=== PATIENT | male | born 1975 | race Caucasian/White ===

== ENCOUNTER 2018-07-01 22:45 | Emergency (ER) | payer BC, MEDICAID ==
[2018-07-01 22:51] VITALS: TEMP 98.1
--- NOTE | 2018-07-01 23:53 | ED ---
General Adult HPI - General Chief complaint: Skin/Abscess/Foreign Body Stated complaint: poss tick bite Time Seen by Provider: 07/01/18 23:02 Source: patient, RN notes reviewed Mode of arrival: ambulatory Limitations: no limitations - History of Present Illness Initial comments: 43-year-old male presents to the emergency department for multiple complaints. Patient states he has had neck pain for 3 days which resolved yesterday. Patient states the neck pain occurred after he tried to lift up the end of his trailer. Patient states the pain is in the neck in the upper back. Patient states he also has a bug bite on the left arm. Patient is concerned that it looks red around the bug bite. He states his family was concerned for Lyme disease. Patient denies any myalgias or headaches. Patient states he has had night sweats for the past 2 nights. Patient denies fevers or chills at home. Patient denies any nausea or vomiting. Patient has no other complaints at this time including shortness of breath, chest pain, abdominal pain, nausea or vomiting, headache, or visual changes. - Related Data Previous Rx's Medication Instructions Recorded Doxycycline [Vibramycin] 50 mg PO Q12HR 10 Days capsule 07/02/18 Allergies Allergy/AdvReac Type Severity Reaction Status Date / Time No Known Allergies Allergy Verified 07/01/18 22:51 Review of Systems ROS Statement: Those systems with pertinent positive or pertinent negative responses have been documented in the HPI. ROS Other: All systems not noted in ROS Statement are negative. Past Medical History Past Medical History: No Reported History History of Any Multi-Drug Resistant Organisms: None Reported Past Surgical History: No Surgical Hx Reported Past Psychological History: No Psychological Hx Reported Smoking Status: Former smoker Past Alcohol Use History: Daily Past Drug Use History: None Reported General Exam Limitations: no limitations General appearance: alert, in no apparent distress Head exam: Present: atraumatic, normocephalic, normal inspection Eye exam: Present: normal appearance, PERRL, EOMI. Absent: scleral icterus, conjunctival injection, periorbital swelling ENT exam: Present: normal exam, normal oropharynx, mucous membranes moist, TM's normal bilaterally, normal external ear exam Neck exam: Present: normal inspection, full ROM. Absent: tenderness (no cervical or paraspinal cervical tenderness), meningismus, lymphadenopathy Respiratory exam: Present: normal lung sounds bilaterally Cardiovascular Exam: Present: regular rate, normal rhythm, normal heart sounds. Absent: systolic murmur, diastolic murmur, rubs, gallop, clicks Extremities exam: Present: full ROM (full ROM of the left forearm), other ( there is a 1 cm x 1 cm area of erythema on left medial forearm consistent with bug bite. No spreading redness or cellulitic changes. No abscess noted. No streaking redness) Neurological exam: Present: alert, oriented X3, CN II-XII intact Psychiatric exam: Present: normal affect, normal mood Skin exam: Absent: rash Course Vital Signs 07/01/18 22:47 Temperature 98.1 F Pulse Rate 98 Respiratory 16 Rate Blood Pressure 129/92 O2 Sat by Pulse 94 L Oximetry Medical Decision Making - Medical Decision Making 43-year-old male presents to the emergency department for a chief complaint of neck pain as well as bug bite. Neck pain completely resolved as of yesterday and was caused by trying to lift a heavy object. Patient denies any history of headaches or fevers. Patient does have a small 1 m x 1 cm bug bite on the left forearm. Patient states it looked like a bull's-eye rash earlier. Patient is concerned for Lyme disease. He states the bug bite may have been a tick bite. He is unsure. At this time there is no spreading redness streaking redness or abscess. Patient had titers drawn for Lyme disease. Patient opted to take antibiotics prophylactically while waiting for Lyme titers. He will follow up with primary care in 1-2 days. Patient will return to the emergency department if he has any worsening symptoms. Disposition Clinical Impression: Bug bite Disposition: HOME SELF-CARE Condition: Good Instructions: Insect Bite or Sting (ED) Additional Instructions: Please take doxycycline as directed. Please follow-up with primary care in 1-2 days. Return to the emergency department if you have any worsening symptoms. Prescriptions: Doxycycline [Vibramycin] 50 mg PO Q12HR 10 Days capsule Is patient prescribed a controlled substance at d/c from ED?: No Referrals: Anabell Mix MD [Primary Care Provider] - 1-2 days Time of Disposition: 00:22
[2018-07-02 00:40] VITALS: BP 122/63; PULSE 90; RESP 18
[2018-07-03 11:20] LABS: Lyme IgG/IgM 0.6 Index
== END 2018-07-02 00:40 | disposition home or self-care (01) ==
LOC: EC 22:45
DX: S50.862A Insect bite (nonvenomous) of left forearm, initial encounter (principal); M54.6 Pain in thoracic spine; Z87.891 Personal history of nicotine dependence; W57.XXXA Bitten or stung by nonvenomous insect and other nonvenomous arthropods, initial encounter
CPT/HCPCS: 36415; 86618; 99283